=== PATIENT | female | born 1970 | race Caucasian/White ===

== ENCOUNTER → 2025-01-27 12:57 | Outpatient (REF) | payer BC, SELFPAY | LOC: RAD 12:57 | PROVIDERS: ATTENDING PHYSICIAN Family Medicine | DX: R10.0 Acute abdomen (principal) | CPT/HCPCS: 74177; Q9967 ==

== ENCOUNTER → 2025-05-01 08:59 | Outpatient (REF) | payer BC, SELFPAY | LOC: HWRAD 08:59 | PROVIDERS: ATTENDING PHYSICIAN Internal Medicine; FAMILY PHYSICIAN Family Medicine | DX: R10.13 Epigastric pain (principal); K92.89 Other specified diseases of the digestive system | CPT/HCPCS: 76700 ==

== ENCOUNTER 2025-05-10 06:27 | Day surgery (SDC) | payer BC, SELFPAY | END 2025-05-10 12:40 | disposition home or self-care (01) | LOC: GI 06:27 | PROVIDERS: ATTENDING PHYSICIAN Internal Medicine | DX: Z12.11 Encounter for screening for malignant neoplasm of colon (principal); K57.32 Diverticulitis of large intestine without perforation or abscess without bleeding; K57.30 Diverticulosis of large intestine without perforation or abscess without bleeding; R14.0 Abdominal distension (gaseous); R10.13 Epigastric pain; K22.89 Other specified disease of esophagus; K20.90 Esophagitis, unspecified without bleeding; K29.70 Gastritis, unspecified, without bleeding; K62.1 Rectal polyp; K63.89 Other specified diseases of intestine; K22.70 Barrett's esophagus without dysplasia; K86.9 Disease of pancreas, unspecified | CPT/HCPCS: 45380; 43239; 88305; 88342 ==